=== PATIENT | female | born 1980 | race Hispanic/Latino ===

== ENCOUNTER 2017-08-25 06:09 | Emergency (ER) | payer OTHER ==
[~2017-08-25] VITALS: Ht 162.6 cm; Wt 102.1 kg
[~2017-08-25 06:09] MED LIST: ATORVASTATIN CA10 MG PO; HYDROXYCHLOROQ200 M2 PO; MEDROL DOSEPAK1 PAC PO; PERCOCET 325 MG1 TA2 PO; PROVENTIL0.09 MG/A1 INH; ROBITUSSIN W/CO10 ML PO; VICODIN 5-3001 EACH PO
[2017-08-25 06:19] VITALS: BP 146/89
--- NOTE | 2017-08-25 06:29 | ED GENERAL ADULT ---
History of Present Illness General Chief Complaint: General Adult Stated Complaint: RIGHT SIDE BODY PAIN FOR FEW DAYS Source: patient, old records Exam Limitations: no limitations Vital Signs & Intake/Output Vital Signs & Intake/Output Vital Signs Date Time Temp Pulse Resp B/P B/P Pulse O2 O2 Flow FiO2 Mean Ox Delivery Rate 08/25 0652 100 Room Air 08/25 0619 96.8 95 18 146/89 100 Room Air Allergies Coded Allergies: No Known Allergies (08/22/15) Reconcile Medications Atorvastatin Calcium (Lipitor) 10 MG TABLET 1 TAB PO DAILY CHOLESTEROL ( Reported) Hydrocodone/Acetaminophen (Vicodin 5-300 MG Tablet) 5 MG-300 MG TABLET 1 TAB PO Q6HR PRN SEVERE PAIN Hydroxychloroquine Sulfate 200 MG TABLET 1 TAB PO BID LUPUS Triage Note: TRIAGE: PATIENT TO ER FROM HOME REPORTS HX LUPUS, INC PAIN TO BILATERAL ANKLES AND HANDS, "CAN'T CLOSE MY HANDS." DENIES ANY KNOWN INJURIES. ALSO REPORTING PAINS TO SIDES AND SHOOTING INTO FEET. Triage Nurses Notes Reviewed? yes : No Patient currently breastfeeds: No HPI: Patient presents to the emergency department with pain in her right ankle as well as her right wrist. Patient is also having shooting pain from her right hip all the way down her right ankle. Patient has a history of lupus. Patient ran out of her medications 3 weeks ago but has not seen her doctor yet. Patient has had flares in the past but does not remember it attacked her ankle before. There are no fevers or chills. There is no trauma. Pain is 10 out of 10. The pain increases with movement. There is no rashes. Patient states the pain started morning. Patient was on hydrochloroquin but ran out 3 weeks ago. Past History Travel History Traveled to [place] past 21 day No Medical History Any Pertinent Medical History? 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 No Review of Systems Review of Systems Constitutional: Reports: no symptoms. EENTM: Reports: no symptoms. Respiratory: Reports: no symptoms. Cardiovascular: Reports: no symptoms. GI: Reports: no symptoms. Genitourinary: Reports: no symptoms. Musculoskeletal: Reports: see HPI, joint pain, joint swelling. Skin: Reports: no symptoms. Neurological/Psychological: Reports: no symptoms. Hematologic/Endocrine: Reports: no symptoms. Immunologic/Allergic: Reports: no symptoms. All Other Systems: Reviewed and Negative Physical Exam Physical Exam General Appearance: well developed/nourished, alert, awake, anxious, moderate distress Head: atraumatic, normal appearance Eyes: Bilateral: PERRL, EOMI. Ears, Nose, Throat: normal pharynx, normal ENT inspection, hearing grossly normal Neck: normal inspection, supple, full range of motion Respiratory: normal breath sounds, chest non-tender, no respiratory distress, lungs clear Cardiovascular: regular rate/rhythm, normal peripheral pulses Extremities: limited range of motion (SEC TO PAIN) Neurologic/Psych: no motor/sensory deficits, awake, alert, oriented x 3, normal mood/affect Skin: intact, normal color, warm/dry Core Measures ACS in differential dx? No CVA/TIA Diagnosis: No Sepsis Present: No Sepsis Focused Exam Completed? No Progress Differential Diagnoses I considered the following diagnoses in my evaluation of the patient: [LUPUS FLAIR, FX] Plan of Care: Orders Procedure Date/time Status XRY-WRIST COMPLETE-RIGHT 08/25 622 Active XRY-ANKLE 3 OR MORE VIEWS R 08/25 622 Active Diagnostic Imaging: Viewed by Me: Radiology Read. Discussed w/RAD: Radiology Read. Radiology Impression: PATIENT: EDELMIRA HOWELL PRESENT AGE: 36 PATIENT ACCOUNT NO: [id number] : 80 LOCATION: [facility] ORDERING PHYSICIAN: Roberto Joaquin MD SERVICE DATE: 08/25/17 EXAM TYPE: RAD - XRY-WRIST COMPLETE-RIGHT EXAMINATION: XR WRIST, RIGHT CLINICAL INFORMATION: Pain COMPARISON: None TECHNIQUE: PA, lateral, and oblique views of the right wrist. FINDINGS: No fracture or dislocation. The carpal rows are appropriately aligned. Joint spaces are maintained. The soft tissues are unremarkable. IMPRESSION: No evidence of fracture or malalignment. DICTATED BY: Michael KINNEY ,Johnathan DATE/TIME DICTATED:08/25/17650 SHIRT IRONER:RAD.GA DATE/TIME TRANSCRIBED:08/25/17650 CONFIDENTIAL, DO NOT COPY WITHOUT APPROPRIATE AUTHORIZATION. <Electronically signed in Other Vendor System> SIGNED BY: Johnathan Rodriguez MD 08/25/1755, PATIENT: EDELMIRA HOWELL PRESENT AGE: 36 PATIENT ACCOUNT NO: [id number] : 80 LOCATION: [facility] ORDERING PHYSICIAN: Roberto Joaquin MD SERVICE DATE: 08/25/17 EXAM TYPE: RAD - XRY-ANKLE 3 OR MORE VIEWS R EXAMINATION: XR ANKLE, RIGHT CLINICAL INFORMATION: Pain COMPARISON: None TECHNIQUE: AP, lateral, and mortise views of the right ankle. FINDINGS: Lateral soft tissue swelling. Ankle joint effusion noted. No acute fracture or dislocation. The ankle mortise is congruent. Plantar heel spur. IMPRESSION: Soft tissue swelling with joint effusion. No fracture or malalignment. Plantar heel spur. DICTATED BY: Johnathan Rodriguez MD DATE/TIME DICTATED:08/25/17651 SHIRT IRONER:MILDRED DATE/TIME TRANSCRIBED:651 CONFIDENTIAL, DO NOT COPY WITHOUT APPROPRIATE AUTHORIZATION. < Electronically signed in Other Vendor System> SIGNED BY: Johnathan Rodriguez MD 08/25/1756 Initial ED EKG: none Departure Departure Disposition: HOME OR SELF CARE Condition: Stable Clinical Impression Primary Impression: Lupus Referrals: Yumiko Rosado APRN (PCP/Family) Brandon KINNEY,Pj Chappell Additional Instructions: YOU NEED TO TAKE YOUR MEDICATIOON PRESCRIBED FOLLOW UP WITH YOUR DOCTOR WITHING THE NEXT [address] DA[address] UP WITH DR. SCHWARZ FROM RHEUMATOLOGY Departure Forms: Customer Survey General Discharge Information Prescriptions: Current Visit Scripts Hydromorphone HCl (Dilaudid) 1 TAB PO Q6P PRN PAIN #20 TAB Critical Care Note Critical Care Note Critical Care Time: non-applicable
--- NOTE | 2017-08-25 06:55 | RADIOLOGY REPORT ---
EXAMINATION: XR WRIST, RIGHT CLINICAL INFORMATION: Pain COMPARISON: None TECHNIQUE: PA, lateral, and oblique views of the right wrist. FINDINGS: No fracture or dislocation. The carpal rows are appropriately aligned. Joint spaces are maintained. The soft tissues are unremarkable. IMPRESSION: No evidence of fracture or malalignment.
--- NOTE | 2017-08-25 06:56 | RADIOLOGY REPORT ---
EXAMINATION: XR ANKLE, RIGHT CLINICAL INFORMATION: Pain COMPARISON: None TECHNIQUE: AP, lateral, and mortise views of the right ankle. FINDINGS: Lateral soft tissue swelling. Ankle joint effusion noted. No acute fracture or dislocation. The ankle mortise is congruent. Plantar heel spur. IMPRESSION: Soft tissue swelling with joint effusion. No fracture or malalignment. Plantar heel spur.
[2017-08-25] MEDS ORDERED: DILAUDID2 M1 PO (07:02)
== END 2017-08-25 07:18 ==
LOC: ERH 06:09
DX: M32.9 Systemic lupus erythematosus, unspecified (principal); M25.571 Pain in right ankle and joints of right foot; M25.531 Pain in right wrist
CPT/HCPCS: 73110-RT; 73610-RT